=== PATIENT | female | born 2000 | race Caucasian/White ===

== ENCOUNTER 2021-11-18 11:42 | Outpatient (CLI) | payer OTHER, SELFPAY ==
[2021-11-18 12:13] LABS: Basophils Percent Auto 0.3 % (0.2-1.2); Eosinophils Absolute Auto 0.1 K/mm3 (0-0.3); Eosinophils Percent Auto 1.6 % (0-4.4); Hematocrit 34.3 % (37.0-47.0); Hemoglobin 10.6 g/dL (12.0-15.0); Immature Granulocyte Absolute 0.06 K/mm3 (0.00-0.031); Immature Granulocyte Percent A 0.7 % (0-0.5); Lymphocytes Absolute Auto 1.08 K/mm3 (0.9-3.2); Lymphocytes Percent Auto 12.5 % (18.3-44.2); Mean Corpuscular HGB Conc 30.9 g/dl (32-36); Mean Corpuscular Hemoglobin 26.6 pg (26-34); Monocytes Absolute Auto 0.8 K/mm3 (0.1-0.6); Neutrophils Absolute Auto 6.6 K/mm3 (1.3-6.7); Neutrophils Percent Auto 75.9 % (45.5-73.1); Platelet Count Result 242 k/mm3 (150-375); Red Blood Count 3.99 M/mm3 (4.2-5.4); Red Cell Distribution Width 13.8 % (11.5-14.5); White Blood Count 8.7 K/mm3 (4.5-10.0)
[2021-11-18 12:15] VITALS: BP 128/59; PULSE 94
[2021-11-18 12:15] LABS: Appearance Urine Slightly Cloudy (Clear); Bilirubin Urine Negative (Negative); Blood Urine Trace-lysed (Negative); Color Urine Yellow (Yellow); Glucose Urine UA Negative (Negative); Ketones Urine Negative (Negative); Leukocyte Esterase Ur 1+ LEU/UL (NEGATIVE); Nitrate Urine Negative (Negative); Protein Urine 2+ mg/dL (Negative); Specific Grav Ur >= 1.030 (1.001-1.035); Urobilinogen Urine 0.2 mg/dL (<2.0)
[2021-11-18 12:19] LABS: Creatinine Urine 171.5 mg/dL; Total Protein Urine Random 37 mg/dL; Ur Ttl Prot Creatinine Ratio 0.22 mg/mg (0-0.20)
[2021-11-18 12:20] LABS: Mucus Urine Rare /lpf; Squamous Epithelial Cell Urine Moderate /hpf (Few); WBC Urine 21-30 /hpf (0-3)
[2021-11-18 12:23] LABS: Alanine Aminotransferase 12 U/L (6-35); Albumin Level 3.4 g/dL (3.5-5.1); Alkaline Phosphatase 143 U/L (38-126); Anion Gap 5 mmol/L (8-16); Aspartate Amino Transferase 16 U/L (14-36); Bilirubin,Total 0.1 mg/dL (0.2-1.3); Blood Urea Nitrogen 6 mg/dL (7-17); Calcium 8.2 mg/dL (8.4-10.2); Carbon Dioxide 22 mmol/L (22-30); Chloride 109 mmol/L (98-107); Estimated Glomerular Filt Rate > 60; Glucose 94 mg/dL (65-110); Potassium 3.6 mmol/L (3.4-5.0); Sodium 136 mmol/L (137-145)
[2021-11-18 12:30] VITALS: BP 124/59; PULSE 87
[2021-11-18 12:41] LABS: Add Urine Microscopic? YES
[2021-11-18 12:45] VITALS: BP 127/69; PULSE 84
--- NOTE | 2021-11-18 13:00 | PC.NURSE ---
1250= SPoke with Dr. pete, labs Bps reveiwed. orders to discharge to home.
== END 2021-11-18 13:01 | disposition home or self-care (01) ==
LOC: ANHOBOP 11:46 → ANHOBPP 11:49
PROVIDERS: PCP Family Medicine; Visit Provider Obstetrics & Gynecology
DX: O13.9 Gestational [pregnancy-induced] hypertension without significant proteinuria, unspecified trimester (principal); Z3A.00 Weeks of gestation of pregnancy not specified
CPT/HCPCS: 36415; 59025; 80053; 81001; 82570; 84156; 84550; 85025; 87086; 99199

== ENCOUNTER 2021-11-20 13:34 | Outpatient (CLI) | payer OTHER, SELFPAY ==
[2021-11-20 13:41] VITALS: BP 143/68; BP 143/92; PULSE 106; PULSE 95
[2021-11-20 14:33] VITALS: PULSE 100; O2SAT 96
[2021-11-20 14:38] VITALS: PULSE 94; O2SAT 96
[2021-11-20 14:40] VITALS: BP 137/67; PULSE 89
--- NOTE | 2021-11-20 14:51 | PC.NURSE ---
1400--While taking pt's H&P, pt. states she is supposed to be taking baby aspirin, but has not taken it yet , she also states she has not been taking PNV and is taking Flintstones approx once or twice a week. Pt. denies h/a at this time, states she had a bad one this morning but states she did not take any Tylenol today. Pt. states she has been short of breath since last night and had chest pain that subsided with famotidine this morning. EFM X2 applied, v.s. taken and pulse ox applied at this time.
== END 2021-11-20 14:45 | disposition home or self-care (01) ==
LOC: ANHOBOP 14:34 → ANHOBPP 11-25 06:34
PROVIDERS: PCP Family Medicine; Visit Provider Obstetrics & Gynecology
DX: O13.9 Gestational [pregnancy-induced] hypertension without significant proteinuria, unspecified trimester (principal); Z3A.00 Weeks of gestation of pregnancy not specified
CPT/HCPCS: 59025; 99199

== ENCOUNTER 2021-11-21 16:15 | Outpatient (CLI) | payer OTHER, SELFPAY ==
[2021-11-21 16:54] LABS: Alanine Aminotransferase 12 U/L (6-35); Albumin Level 3.4 g/dL (3.5-5.1); Alkaline Phosphatase 130 U/L (38-126); Anion Gap 5 mmol/L (8-16); Aspartate Amino Transferase 21 U/L (14-36); Bilirubin,Total 0.2 mg/dL (0.2-1.3); Blood Urea Nitrogen 8 mg/dL (7-17); Calcium 8.8 mg/dL (8.4-10.2); Carbon Dioxide 21 mmol/L (22-30); Chloride 109 mmol/L (98-107); Estimated Glomerular Filt Rate > 60; Glucose 97 mg/dL (65-110); Potassium 4.2 mmol/L (3.4-5.0); Sodium 135 mmol/L (137-145); Uric Acid 4.6 mg/dL (2.5-7.5)
[2021-11-21 23:24] LABS: Total Volume 24 Hour Urine 1400 ml
[2021-11-21 23:32] LABS: Total Protein Urine 24 Hr 294 mg/24hr (28-141); Total Protein Urine Random 21 mg/dL
[2021-11-21 23:33] LABS: Creatinine 24 Hour Urine 1.8 gm/24 (0.8-1.8); Creatinine Urine 130.3 mg/dL
== END 2021-11-21 16:16 | disposition home or self-care (01) ==
LOC: ANHOBOP 16:23
PROVIDERS: PCP Family Medicine; Visit Provider Obstetrics & Gynecology
DX: Z39.2 Encounter for routine postpartum follow-up (principal)
CPT/HCPCS: 36415; 80053; 81050; 82570; 84156; 84550

== ENCOUNTER 2021-11-23 13:40 | Outpatient (RCR) | payer OTHER, SELFPAY ==
[2021-10-25 17:10] VITALS: BP 122/68; PULSE 98
[2021-11-02 13:13] VITALS: BP 129/89
[2021-11-09 12:15] VITALS: BP 116/56; PULSE 98
[2021-11-15 14:18] VITALS: BP 141/89
--- NOTE | ~2021-11-23 | US_ITS ---
EXAMINATION: US OB BPP wo non-stress DATE: 11/09/2021 12:22 CDT INDICATION: IUGR TECHNIQUE: Real-time transabdominal obstetric ultrasound. FINDINGS: Ultrasound dated 11/02/2021 There is a single living fetus in vertex presentation. The placenta is posterior without placenta pr evia. cardiac activity and movement is noted with a heart rate of 138 beats per minute. Biophysical profile: breathin of 2 movement: 2 of 2 tone: 2 of 2 Amniotic flud pocket: 2 of 2 Total score: 8 of 8 IMPRESSION: 1. Single living intrauterine in vertex presentation. 2: Total biophysical profile score of 8/8. Reviewed, dictated and finalized at location B.
--- NOTE | ~2021-11-23 | US_ITS ---
EXAMINATION: US OB follow up w BPP DATE: 11/15/2021 15:32 INDICATION: Intrauterine growth restriction. Third trimester. TECHNIQUE: Real-time ultrasound of the pelvis was performed. COMPARISON: Ultrasound 11/09/2021 FINDINGS: There is a single living fetus in vertex presentation. The placenta is posterior. heart rate i s 144 beats per minute (bpm). The amniotic fluid index is 11.1 cm, which is normal. The following biometric data were obtained: Biparietal diameter (BPD): 8.7 cm; head circumference (HC): 31.4 cm; abdominal circumference (AC): 32 .2 cm; femur length (FL): 7.0 cm. These measurements are concordant. Estimated weight is 2769 g +/- 415 g, which correlates with the 49th percentile when 12/14/21 is used as estimated date of delivery. As single measurements, these parameters are each equal to the following estimated gestational ages: BPD: 35 weeks 1 days. HC: 35 weeks 2 days. AC: 36 weeks 1 days. FL: 35 weeks 5 days. estimated gestational age based solely on measurements from this exam is 35 weeks 4 days +/- 2 weeks 3 days. Biophysical profile performed by the technologist: breathing (30 sec sustained breathing in 30 minutes): 2 out of 2 movement (3 gross body movements in 30 minutes): 2 out of 2 tone (one episode of ayiygls-miuswtjar-hiazuuh limb movement): 2 out of 2 Amniotic fluid pocket (2 cm): 2 out of 2 Total score: 8 out of 8 IMPRESSION: 1. Single living fetus in vertex presentation. 2. Estimated weight is 2769 g +/- 415 g, which correlates with the 49th percentile when 2 is used as estimated date of delivery. 3. Biophysical profile 8 out of 8. Reviewed, dictated and finalized at location B. IMPRESSION: 1. Single living fetus in vertex presentation. 2. Estimated weight is 2769 g +/- 415 g, which correlates with the 49th percentile when 12/14/21 is used as estimated date of delivery. 3. Biophysical profile 8 out of 8.
--- NOTE | ~2021-11-23 | US_ITS ---
EXAMINATION: US OB follow up w BPP DATE: 10/25/2021 17:08 INDICATION: IUGR. Biophysical profile. Evaluate growth. TECHNIQUE: Real-time ultrasound of the pelvis was performed. The interpreting radiologist was not pre sent for the study. COMPARISON: None. FINDINGS: There is a single living fetus in vertex presentation. The placenta is posterior. cardiac acti vity and movement are noted. heart rate is 136 beats per minute (bpm). The amniotic fluid index is 11.1 cm, which is normal. The following biometric data were obtained: BPD: 81 cm corresponds to gestational age 32 weeks 3 day(s). Head circumference: 302 cm corresponds to gestational age 33 weeks 4 day(s). Abdominal circumference: 290 cm corresponds to gestational age 33 weeks 0 day(s). Femur length: 64 cm corresponds to gestational age 32 weeks 6 day(s). Head circumference to abdominal circumference ratio: 1.04 Estimated weight: 2083 g plus or minus 312 g, 42.9% by Hadlock method. Biophysical profile performed by the technologist: breathing (30 sec sustained breathing in 30 minutes): 2 out of 2 movement (3 gross body movements in 30 minutes: 2 out of 2 tone (one episode of yfftffn-uuepagpwf-osvicrk limb movement): 2 out of 2 Amniotic fluid pocket (2 cm): 2 out of 2 Total score: 8 out of 8 IMPRESSION: 1. Single living fetus in vertex presentation with heart rate of 136 bpm. 2. Normal posterior placenta. 3. Biophysical profile 8 out of 8. 4. Gestational age by ultrasound of 33 weeks 0 day(s) with ultrasound estimated date of delivery (BEN ) of 12/13/2021. Reviewed, dictated and finalized at location A. IMPRESSION: 1. Single living fetus in vertex presentation with heart rate of 136 bpm. 2. Normal posterior placenta. 3. Biophysical profile 8 out of 8. 4. Gestational age by ultrasound of 33 weeks 0 day(s) with ultrasound estimated date of delivery (BEN) of 12/13/2021.
--- NOTE | ~2021-11-23 | US_ITS ---
EXAMINATION: US OB BPP wo non-stress DATE: 11/23/2021 14:50 INDICATION: IUGR during third trimester TECHNIQUE: Real-time pelvic ultrasound was performed. The interpreting radiologist was not present fo r the study. COMPARISON: 11/15/2021 FINDINGS: There is a single living fetus in vertex presentation. The placenta is fundal. heart rate is 13 5 beats per minute (bpm). The amniotic fluid index is 7.5 cm which is normal Biophysical profile performed by the technologist: breathing (30 sec sustained breathing in 30 minutes): 2 out of 2 movement (3 gross body movements in 30 minutes): 2 out of 2 tone (one episode of dufowkf-tmproxzka-keaqcmf limb movement): 2 out of 2 Amniotic fluid pocket (2 cm): 2 out of 2 Total score: 8 out of 8 IMPRESSION: 1. Single living fetus in vertex presentation. 2. Biophysical profile 8 out of 8. 3. Normal amniotic fluid index. Reviewed, dictated and finalized at location A.
--- NOTE | ~2021-11-23 | US_ITS ---
EXAMINATION: US OB BPP wo non-stress DATE: 11/02/2021 14:10 CDT INDICATION: IUGR TECHNIQUE: Real-time transabdominal obstetric ultrasound. FINDINGS: No prior studies for comparison. There is a single living fetus in vertex presentation. The placenta is posterior without placenta pr evia. NOMAN is normal measuring 15.1 cm. cardiac activity and movement is noted with a heart rate of 132 beats per minute. Biophysical profile: breathin of 2 movement: 2 of 2 tone: 2 of 2 Amniotic flud pocket: 2 of 2 Total score: 8 of 8 IMPRESSION: 1. Single living intrauterine in vertex presentation. 2: Total biophysical profile score of 8/8. Reviewed, dictated and finalized at location A.
[2021-11-23 14:59] VITALS: BP 148/78; PULSE 108
== END 2021-12-11 09:20 | disposition home or self-care (01) ==
LOC: ANHOBOP 13:40
PROVIDERS: PCP Family Medicine; Visit Provider Obstetrics & Gynecology
DX: O36.5930 Maternal care for other known or suspected poor fetal growth, third trimester, not applicable or unspecified (principal); Z3A.32 32 weeks gestation of pregnancy
CPT/HCPCS: 59025; 76816; 76819

== ENCOUNTER 2021-11-25 12:35 | Inpatient (IN) | payer OTHER, SELFPAY ==
[2021-11-25] VITALS (41 sets, daily range): BP systolic 95–156; BP diastolic 66–97; PULSE 64–124; TEMP 36.2–36.8; O2SAT 89–100; BMI 45.6
--- OUTSIDE RECORDS SUMMARY | 2021-11-25 12:41 | XMS_ITS | CCD ---
:2000 Author Care Team Providers Name Role Phone Júnior Gibbs Attending Physician Unavailable Vital Signs Unknown or Not Available. Allergies Allergy Code Allergy Type Reaction Status No Known Environmental 0 No known environmental Active Allergies allergies No Known Food Allergies 0 No known food allergies Active No Known Drug Allergies 0 No known drug allergies Active Procedures Unknown or Not Available. History of Immunizations Immunization Code Date Hep B, adolescent or pediatric 2 IPV 10 2001 DTaP 20 2001 IPV 10 2001 Hib, unspecified formulation 17 2001 DTaP 20 2001 Hep B, adolescent or pediatric 2 Hib, unspecified formulation 2001 DTaP 20 2001 MMR 03 08/03/2002 varicella 21 08/03/2002 varicella 21 01/13/2007 HPV, quadrivalent 62 05/16/2012 meningococcal MCV4P 114 05/16/2012 Tdap 115 05/16/2012 Influenza, seasonal, injectable, preservative free 140 05/16/2012 HPV, quadrivalent 62 12/11/2013 meningococcal MCV4P 114 12/29/2015 COVID-19, mRNA, LNP-S, PF, 100 mcg/0.5mL dose or 50 mcg/0.25 mL dose 12/24/2020 COVID-19, mRNA, LNP-S, PF, 100 mcg/0.5mL dose or 50 mcg/0.25 mL dose 01/26/2021 Problems Unknown or Not Available. Results Unknown or Not Available. Active Medications Unknown or Not Available. Medications Administered During Visit Unknown or Not Available. Encounters Encounter Diagnosis Diagnosis Code Start Date Exposure to SARS-CoV-2 [id number]
--- OUTSIDE RECORDS SUMMARY | 2021-11-25 12:41 | XMS_ITS | CCD ---
:2001 Author Care Team Providers Name Role Phone GUSTAVO PARHAM Attending Physician Unavailable Vital Signs Unknown or [...] 2001 IPV 10 2001 Hib, unspecified formulation 2001 DTaP 20 2001 Hep B, adolescent [...] 01/26/2021 Problems Unknown or Not Available. Results GLUCOSE TOLERANCE OB 3HR - Collect Date/ Time: 09/27/2021 10:06 Test Name Code Test Result Test Units Test Ref Range IS PATIENT FASTING? YES N/A Acti
--- OUTSIDE RECORDS SUMMARY | 2021-11-25 12:41 | XMS_ITS | CCD ---
:2001 Author Care Team Providers Name Role Phone EUNICEJOLIELEONIDES Attending Physician Unavailable Vital Signs Unknown or Not Available. Allergies Allergy Code Allergy Type Reaction Status No Known Environmental 0 No known environmental Active Allergies allergies No Known Food Allergies 0 No known food allergies Active No Known Drug Allergies 0 No known drug allergies Active Procedures Procedure Code Procedure Type Date CULTURE URINE [id number] SNOMED CT 08/20/2021 History of Immunizations Immunization Code Date Hep B, adolescent or pediatric 08 2 IPV 10 2001 DTaP 20 2001 IPV 10 2001 Hib, unspecified formulation 17 2001 DTaP 20 2001 Hep B, adolescent or pediatric 08 2 Hib, unspecified formulation 17 2001 DTaP 20 2001 MMR 03 08/03/2002 [...] 01/26/2021 Problems Unknown or Not Available. Results COMPREHENSIVE METABOLIC PANEL - Collect Date/Time: 08/20/2021 15:06 Test Name
--- OUTSIDE RECORDS SUMMARY | 2021-11-25 12:41 | XMS_ITS | CCD ---
:2001 Author Care Team Providers Name Role Phone NABEEL KERR Attending Physician Unavailable Vital Signs Unknown or Not Available. Allergies Allergy Code Allergy Type Reaction Status No Known Environmental 0 No known environmental Active Allergies allergies No Known Food Allergies 0 No known food allergies Active No Known Drug Allergies 0 No known drug allergies Active Procedures Procedure Code Procedure Type Date CULTURE URINE [id number] SNOMED CT 05/17/2021 History of Immunizations Immunization Code Date Hep [...] Problems Unknown or Not Available. Results GLUCOSE 1 HR P P - Collect Date/Time: 11:30 Test Name Code
--- OUTSIDE RECORDS SUMMARY | 2021-11-25 12:41 | XMS_ITS | CCD ---
[...] Encounters Encounter Diagnosis Diagnosis Code Start Date Blood glucose abnormal [id number]
--- OUTSIDE RECORDS SUMMARY | 2021-11-25 12:41 | XMS_ITS | CCD ---
[...] 01/26/2021 Problems Unknown or Not Available. Results BETA HCG QUANT PREG - Collect Date/Time: 04/07/2021 10:14 Test Name Code Test Result Test Units Test Ref Range HCG QUANT 182 mIU/mL Active Medicati
--- OUTSIDE RECORDS SUMMARY | 2021-11-25 12:41 | XMS_ITS | CCD ---
:2001 Author Care Team Providers Name Role Phone MAGGIE HEARN Attending Physician Unavailable MAGGIE HEARN Rounding (Secondary) Physician Unavailab le Vital Signs Unknown or Not Available. Allergies [...] IPV 10 2001 DTaP 20 2001 IPV 2001 Hib, unspecified formulation 17 2001 DTaP [...] Results Unknown or Not Available. Active Medications No Active Medications Medications Administered During Visit Unknown or Not Available. Encounters Unknown or Not Available. Social History Smoking Status Code Start Date
--- OUTSIDE RECORDS SUMMARY | 2021-11-25 12:41 | XMS_ITS | CCD ---
[...] Active Procedures Procedure Code Procedure Type Date CBC W DIFF [id number] SNOMED CT 09/21/2021 History of Immunizations Immunization Code Date Hep [...] 1 HR P P - Collect Date/Time: 14:45 Test Name Code
--- OUTSIDE RECORDS SUMMARY | 2021-11-25 12:41 | XMS_ITS | CCD ---
[...] Encounters Encounter Diagnosis Diagnosis Code Start Date Routine care [id number]
--- OUTSIDE RECORDS SUMMARY | 2021-11-25 12:41 | XMS_ITS | CCD ---
[...] or pediatric 2 IPV 10 2001 DTaP 2001 IPV 10 2001 Hib, unspecified formulation [...] Diagnosis Code Start Date Exposure to SARS-CoV-2 [id number] 01/14/2021 Social History
--- OUTSIDE RECORDS SUMMARY | 2021-11-25 12:41 | XMS_ITS | CCD ---
[...] TOLERANCE OB 3HR - Collect Date/ Time: 05/24/2021 10:39 Test Name Code Test Result Test Units Test Ref Range IS PATIENT FASTING? YES N/A Act
--- OUTSIDE RECORDS SUMMARY | 2021-11-25 12:42 | XMS_ITS ---
:2001 Author Care Team Providers Name Role Phone Lian Magaña Primary Care Provider Unavailable Allergies Code Code System Name Reaction Severity Status Onset Ceclor ? ? Active ? 03949 RxNorm Duloxetine Rash ? Active ? Extendryl ? ? Active ? 7984 RxNorm Penicillin v ? ? Active ? Medications Name Status Start Date Stop Date ? ? albuterol sulfate HFA 90 mcg/actuation aerosol inhaler Completed ? 08/06/2018 INHALE TWO PUFFS BY MOUTH EVERY 4 HOURS prn atomoxetine 25 mg capsule Unknown ? Not av ailable Take 1 capsule every day by oral route for 30 days. azithromycin 250 mg tablet Completed ? 05/20 TAKE 2 TABLETS BY MOUTH ON DAY 1 AND EN TAKE 1 TABLET BY MOUTH ONCE A DAY ON DAY 2 THROUGH DAY 5 bupropion HCl XL 150 mg 24 hr tablet, extended release Completed ? 03/31/2020 TAKE 1 TABLET BY MOUTH ONCE DAILY bupropion HCl XL 300 mg 24 hr tablet, extended release Completed ? 06/30/2020 TAKE 1 TABLET BY MOUTH ONCE DAILY celecoxib 200 mg capsule Active ? Not beluah ilable TAKE 1 CAPSULE BY MOUTH ONCE DAILY ciprofloxacin 500 mg tablet Completed ? 02/03 TAKE 1 TABLET BY MOUTH TWICE DAILY cyclobenzaprine 10 mg tablet Active ? Not available TAKE 1 TABLET BY MOUTH THREE TIMES DAILY NEEDED cyclobenzaprine 5 mg tablet Unknown ? Not available Take 1 tablet as needed by oral route at bedtime for 30 days. Depo-Provera 150 mg/mL intramuscular suspension Completed ? 05/18/2017 Inject 1 mL every 3 months by intramuscular route. diclofenac sodium 25 mg tablet,delayed release Completed ? 02/18/2019
--- OUTSIDE RECORDS SUMMARY | 2021-11-25 12:42 | XMS_ITS ---
:2001 Author Care Team Providers Name Role Phone LEONIDES DAWSON MD Primary Care Provider [phone] Allergies Code Code System Name Reaction Severity Status Onset Ceclor ? ? Active ? 29844 RxNorm Duloxetine Rash ? Active ? Extendryl ? ? Active ? 7984 RxNorm Penicillin v ? ? Active ? Notes: Some allergies listed in Docume nts: #[id number], #[id number], #[id number], #[id number] could not be added to this patient's shannan rt. Please review these documents and add these allergies to the patient's chart m anually as needed. Medications Name Status Start Date Stop Date ? ? Adult Low Dose Aspirin 81 mg tablet,delayed release Active ? Not available Take 1 tablet every day by oral route. albuterol sulfate HFA 90 mcg/actuation aerosol inhaler Completed ? 08/06/2018 INHALE TWO PUFFS BY MOUTH EVERY 4 HOURS prn atomoxetine 25 mg capsule Completed ? 2018 TAKE 1 CAPSULE BY MOUTH ONCE DAILY FOR 30 DAYS azithromycin 250 mg tablet Active ? Not a vailable TAKE 2 TABLETS BY MOUTH ON DAY 1 AND TH EN TAKE 1 TABLET BY MOUTH ONCE A DAY ON DAY 2 THROUGH DAY 5 bupropion HCl XL 150 mg 24 hr tablet, extended release Active ? Not available TAKE 1 TABLET BY MOUTH ONCE DAILY bupropion HCl XL 300 mg 24 hr tablet, extended release Active ? Not available TAKE 1 TABLET BY MOUTH ONCE DAILY celecoxib 200 mg capsule Completed ? 021 TAKE 1 CAPSULE BY MOUTH ONCE DAILY ciprofloxacin 500 mg tablet Completed ? 02/03 TAKE 1 TABLET BY MOUTH TWICE DAILY cyclobenzaprine 10 mg tablet Completed ? TAKE 1 TABLET BY MOUTH THREE TIMES DAILY NEEDED
--- OUTSIDE RECORDS SUMMARY | 2021-11-25 12:42 | XMS_ITS | Encounter Summary ---
:2001 Author Care Team Providers Name Role Phone Lian Magaña MD Primary Care Provider [phone] Reason for Visit Not seen by provider - Nurse visit only TDAP Assessment and Plan None recorded.Discussion Note: None recorded.Patient educational handouts: No information available. Plan of Care Reminders Provider Appointments None recorded. ? ? Lab None recorded. ? ? Referral None recorded. ? ? Procedures None recorded. ? ? Surgeries None recorded. ? ? Imaging None recorded. ? ? Medications Name Start Date ? ? Adult Low Dose Aspirin 81 mg tablet,delayed release ? Take 1 tablet every day by oral route. famotidine ? Notes: vitamin d/ PNV Medications Administered None recorded. Vitals Height 5 ft 1 in Results Lab Results None recorded. Allergies Code Code System Name Reaction Severity Onset Ceclor ? ? ? 73478 RxNorm Duloxetine Rash ? ? Extendryl ? ? ? 7984 RxNorm Penicillin v ? ? ? Notes: Some allergies listed in Docume nts: #[id number], #[id number], #[id number], #[id number] could not be added to this patient's shannan rt. Please review these documents and add these allergies to the patient's chart m anually as needed. Problems Name Status Onset Date Source ? Thyroid Nodule Active 09/25/2016 ? Vitamin D Deficiency Active 09/25/2016 ? Iron Deficiency Active 11/13/2019 ? Foot Pain Active 08/16/2020 ? Congenital Pes Planus Active
[2021-11-25 13:30] LABS: Basophils Percent Auto 0.3 % (0.2-1.2); Eosinophils Absolute Auto 0.1 K/mm3 (0-0.3); Eosinophils Percent Auto 1.1 % (0-4.4); Hematocrit 33.2 % (37.0-47.0); Hemoglobin 10.5 g/dL (12.0-15.0); Immature Granulocyte Absolute 0.07 K/mm3 (0.00-0.031); Immature Granulocyte Percent A 0.7 % (0-0.5); Lymphocytes Percent Auto 11.3 % (18.3-44.2); Mean Corpuscular HGB Conc 31.6 g/dl (32-36); Mean Corpuscular Hemoglobin 26.4 pg (26-34); Mean Corpuscular Volume 83.4 fl (80-100); Mean Platelet Volume 10.4 fl (7.4-10.4); Monocytes Absolute Auto 0.8 K/mm3 (0.1-0.6); Monocytes Percent Auto 7.8 % (2.6-8.5); Neutrophils Absolute Auto 7.6 K/mm3 (1.3-6.7); Neutrophils Percent Auto 78.8 % (45.5-73.1); Platelet Count Result 256 k/mm3 (150-375); Red Blood Count 3.98 M/mm3 (4.2-5.4); Red Cell Distribution Width 14.2 % (11.5-14.5); White Blood Count 9.7 K/mm3 (4.5-10.0)
[2021-11-25] MEDS: DINOPROSTONE 10 MG VAG INSERT VAGINAL (13:30)
--- NOTE | 2021-11-25 13:38 | LDADM ---
This patient, Cindy Madsen, was admitted to Labor/Delivery/Recovery 105 on 11/25/21 at 12:35. Plans for labor, pain management and were discussed with patient. Patient/family oriented to hospital policies and general routines including ID bracelet, bed and alarms, visiting hours, pain management, procedures, bathroom and other care routines, personal items, smoking policy, room service/diet and guest tray routines, infant security routines, and visiting hours. Patient/Family are encouraged to report perceived risks to care and to ask questions if they do not understand what they are told or what they should do. See OBIX for further documentation.
[2021-11-25 13:44] LABS: Alanine Aminotransferase 16 U/L (6-35); Albumin Level 3.2 g/dL (3.5-5.1); Alkaline Phosphatase 147 U/L (38-126); Anion Gap 8 mmol/L (8-16); Aspartate Amino Transferase 18 U/L (14-36); Bilirubin,Total 0.2 mg/dL (0.2-1.3); Blood Urea Nitrogen 5 mg/dL (7-17); Calcium 8.3 mg/dL (8.4-10.2); Carbon Dioxide 18 mmol/L (22-30); Chloride 110 mmol/L (98-107); Estimated Glomerular Filt Rate > 60; Glucose 120 mg/dL (65-110); Potassium 3.4 mmol/L (3.4-5.0); Sodium 136 mmol/L (137-145); Uric Acid 5.6 mg/dL (2.5-7.5)
[2021-11-25] MEDS: ACETAMINOPHEN 500 MG TABLET 1000 MG (19:00)
--- NOTE | 2021-11-25 19:47 | WPDANESEPP ---
Anes - Eval Pre Procedure Procedure: labor epidural Date/Time: 11/25/21 19:47 Surgeon: juan r Pre Op Diagnosis: IOL Patient Data Age: 21 Gender: F Height: 1.55 m Weight: 109.5 kg Last Vital Signs Temp 36.2 C L 11/25/21 13:24 Pulse 108 H 11/25/21 18:52 BP 134/97 H 11/25/21 18:52 Pulse Ox 100 11/25/21 19:43 O2 Del Method Room Air 11/25/21 13:33 Allergies Allergy/AdvReac Type Severity Reaction Status Date / Time chlorpheniramine Allergy Mild Hives Verified 11/15/21 13:32 [From Extendryl] dexchlorpheniramine Allergy Mild Hives Verified 11/15/21 13:32 [From Extendryl] penicillin V Allergy Mild Hives Verified 11/15/21 13:32 phenylephrine Allergy Mild Hives Verified 11/15/21 13:32 [From Extendryl] scopolamine [From Extendryl] Allergy Mild Hives Verified 11/15/21 13:32 cefaclor [From Ceclor] Allergy Hives Verified 11/25/21 13:54 Home Medications Medication Instructions Recorded Confirmed Type famotidine 10 mg tablet (Acid 10 mg PO DAILY #90 tabs 07/02/21 11/25/21 Rx Hydro Pneumatic Tester (famotidine)) Laboratory Tests 11/25/21 11/25/21 11/25/21 13:12 13:12 13:12 WBC 9.7 K/mm3 K/mm3 (4.5-10.0) RBC 3.98 M/mm3 L M/mm3 (4.2-5.4) Hgb 10.5 g/dL L g/dL (12.0-15.0) Hct 33.2 % L % (37.0-47.0) MCV 83.4 fl fl (80-100) MCH 26.4 pg pg (26-34) MCHC 31.6 g/dl L g/dl (32-36) RDW 14.2 % % (11.5-14.5) Plt Count 256 k/mm3 k/mm3 (150-375) MPV 10.4 fl fl (7.4-10.4) Immature Gran % (Auto) 0.7 % H % (0-0.5) Neut % (Auto) 78.8 % H % (45.5-73.1) Lymph % (Auto) 11.3 % L % (18.3-44.2) [place] % (Auto) 7.8 % % (2.6-8.5) Eos % (Auto) 1.1 % % (0-4.4) Baso % (Auto) 0.3 % % (0.2-1.2) Lymph # (Auto) 1.10 K/mm3 K/mm3 (0.9-3.2) [place] # (Auto) 0.8 K/mm3 H K/mm3 (0.1-0.6) Eos # (Auto) 0.1 K/mm3 K/mm3 (0-0.3) Baso # (Auto) 0.0 K/mm3 K/mm3 (0.0-0.1) Abs Immat Gran (auto) 0.07 K/mm3 H K/mm3 (0.00-0.031) Absolute Neuts (auto) 7.6 K/mm3 H K/mm3 (1.3-6.7) Absolute Nucleated RBC 0.0 K/mm3 K/mm3 (0.0-0.012) Nucleated RBC % 0.0 % % (0.0-0.2) Sodium Potassium Chloride Carbon Dioxide Anion Gap BUN Creatinine Estim Creat Clear Calc Estimated GFR Glucose Uric Acid Cancelled Calcium Total Bilirubin AST ALT Alkaline Phosphatase Total Protein Albumin RPR Pending Blood Type Antibody Screen 11/25/21 11/25/21 13:12 13:12 WBC RBC Hgb Hct MCV MCH MCHC RDW Plt Count MPV Immature Gran % (Auto) Neut % (Auto) Lymph % (Auto) [place] % (Auto) Eos % (Auto) Baso % (Auto) Lymph # (Auto) [place] # (Auto) Eos # (Auto) Baso # (Auto) Abs Immat Gran (auto) Absolute Neuts (auto) Absolute Nucleated RBC Nucleated RBC % Sodium 136 mmol/L L mmol/L (137-145) Potassium 3.4 mmol/L mmol/L (3.4-5.0) Chloride 110 mmol/L H mmol/L (98-107) Carbon Dioxide 18 mmol/L L mmol/L (22-30) Anion Gap 8 mmol/L mmol/L (8-16) BUN 5 mg/dL L mg/dL (7-17) Creatinine 0.40 mg/dL L mg/dL (0.7-1.0) Estim Creat Clear Calc Not Reportable Estimated GFR > 60 (59 - ) Glucose 120 mg/dL H mg/dL (65-110) Uric Acid 5.6 mg/dL mg/dL (2.5-7.5) Calcium 8.3 mg/dL L mg/dL (8.4-10.2) Total Bilirubin 0.2 mg/dL mg/dL (0.2-1.3) AST
[2021-11-26] VITALS (206 sets, daily range): BP systolic 77–178; BP diastolic 28–131; PULSE 86–175; RESP 16–20; TEMP 36.3–36.9; O2SAT 90–100
[2021-11-26] MEDS: LACTATED RINGERS 1,000 ML 125 ML IV CONT ×2 (02:40→04:14)
[2021-11-26] MEDS: PHENYLEPHRINE 1,000 MCG/10 ML SYRINGE 100 MCG IV PUSH (03:43)
[2021-11-26] MEDS: LABETALOL HCL INJ 100 MG/20 ML VIAL 20 MG IV PUSH (04:55)
[2021-11-26] MEDS: MAGNESIUM SULF 4 GM/WATER100ML 4 GM/100 ML BAG IVPB (04:58)
[2021-11-26] MEDS: MAGNESIUM SULF 20GM/WATER500ML 500 ML 50 MG IV CONT ×2 (05:20→15:55)
[2021-11-26] MEDS: OXYTOCIN 30 UNITS/NS 500 ML 30 UNITS/500 ML BAG 6 UNITS IV CONT (05:31)
--- NOTE | 2021-11-26 07:01 | PM.IMHP ---
H&P: HPI History of Present Illness Date/Time: 11/26/21 07:01 Chief Complaint: elevated blood pressure Narrative: Cindy is a 21yo @ 37.3 who was admitted from clinic on 11/25/21 for elevated blood pressures. She has been monitored this entire for blood pressure-- chronic HTN vs gestational hypertension. But over this week, her BPs have persistently been 140-150's over high 90's. She reports intermittent headaches and chest pains that come and go. She reports good movement. She is s/p cervidil overnight and already received an epidural. She began spiking severe range BPs and subsequently required labetalol IV and magnesium has since be started; giving her a diagnosis of PEC w/ SF. She denies any CP, SOB, vision changes, TUCKER, or RUQ pain. Her is complicated by: - Elevated 1 hr glucose; 3 hour normal - Varicella, CMV, parvo non-immune - GHTN ---> PEC w/ SF - Inadequate weight gain during (2lbs entire ) - Obesity Review of Systems Review of Systems: All systems reviewed & are unremarkable except as noted in HPI and below (HPI) [facility] Past Medical History Medical History Dysmenorrhea Surgical History Surgical History History of orthopedic surgery Family History Family History Grandparent Breast cancer Pancreatic cancer Father Hypertension Mother Hypertension Mother Mitral valve prolapse Social History Social History Smoking status: Never smoker Second hand tobacco smoke exposure: No Substance use: never Spiritual care concerns: No Meds Home Medications and Allergies Home Medications Medication Instructions Recorded Confirmed Type famotidine 10 mg tablet (Acid 10 mg PO DAILY #90 tabs 07/02/21 11/25/21 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)) Allergies Allergy/AdvReac Type Severity Reaction Status Date / Time chlorpheniramine Allergy Mild Hives Verified 11/15/21 13:32 [From Extendryl] dexchlorpheniramine Allergy Mild Hives Verified 11/15/21 13:32 [From Extendryl] penicillin V Allergy Mild Hives Verified 11/15/21 13:32 phenylephrine Allergy Mild Hives Verified 11/15/21 13:32 [From Extendryl] scopolamine [From Extendryl] Allergy Mild Hives Verified 11/15/21 13:32 cefaclor [From Ceclor] Allergy Hives Verified 11/25/21 13:54 Vital Signs Vital Signs - 24 hr 11/25/21 13:25 11/25/21 13:24 11/25/21 13:31 Temperature 97.2 F L Pulse Rate 108 H 102 H Respiratory Rate Blood Pressure 145/91 H 150/83 H Pulse Oximetry Oxygen Delivery 11/25/21 13:46 11/25/21 14:01 11/25/21 14:16 Temperature Pulse Rate 97 95 96 Respiratory Rate Blood Pressure 154/86 H 156/79 H 150/86 H Pulse Oximetry Oxygen Delivery 11/25/21 14:31 11/25/21 15:02 11/25/21 15:23 Temperature Pulse Rate 90 88 91 Respiratory Rate Blood Pressure 125/66 95/79 L 129/68 Pulse Oximetry Oxygen Delivery 11/25/21 15:31 11/25/21 16:32 11/25/21 18:25 Temperature Pulse Rate 85 101 H Respiratory Rate Blood Pressure 150/78 H 150/83 H Pulse Oximetry 100 Oxygen Delivery 11/25/21 18:27 11/25/21 18:30 11/25/21 18:35 Temperature Pulse Rate 110 H Respiratory Rate Blood Pressure 154/89 H Pulse Oximetry 99 100 Oxygen Delivery 11/25/21 18:40 11/25/21 18:45 11/25/21 18:50 Temperature Pulse Rate Respiratory Rate Blood Pressure Pulse Oximetry 100 100 99 Oxygen Delivery 11/25/21 18:52 11/25/21 18:55 11/25/21 19:00 Temperature Pulse Rate 108 H Respiratory Rate Blood Pressure 134/97 H Pulse Oximetry 98 99 Oxygen Delivery 11/25/21 19:02 11/25/21 19:38 11/25/21 19:43 Temperature Pulse Rate Respiratory Rate Blood Pressure Pulse
[2021-11-26 07:12] LABS: Rapid Plasma Reagin Non-Reactive (NonReactive)
--- NOTE | 2021-11-26 07:19 | WPDHPUPDATE1 ---
History and Physical Update Update Date/Time: 11/26/21 07:19 History and Physical has been reviewed, including an updated exam of the patient. There are NO changes in the patient's condition. Risks, benefits, and alternatives have been discussed and questions answered. Patient agrees to proceed with procedure.
--- NOTE | 2021-11-26 07:35 | PM.OBPNLAB ---
Pain Control Date/time seen: 11/26/21 07:35 Pain control: epidural Pelvic Exam Dilation (cm): 3 Effacement (%): 80 station: -3 Amniotic membrane status: Ruptured (clear 0730) Comments: bloody show noted Contractions Monitor mode: Internal (placed this exam) Contraction frequency: 2 Status status: Category l Assessment and Plan Pitocin rate (mU/min): 6 Assessment: induction ongoing Plan: continuous present management
[2021-11-26] MEDS: ONDANSETRON INJ 4 MG/2 ML VIAL IV PUSH (09:05)
[2021-11-26] MEDS: LACTATED RINGERS 1,000 ML 75 ML IV CONT (11:49)
[2021-11-26] MEDS: LIDOCAINE HCL 1% LOCAL INJ 10 ML VIAL (12:36)
--- NOTE | 2021-11-26 12:57 | P.PCNOB_ITS ---
OB - Delivery Note Procedure Delivery date: 11/26/21 Events: Preeclampsia w severe features Induction method: Per Cervidil Protocol Delivery augmentation: Rupture of Membranes and Pitocin Delivery monitor: External FHT and Internal Uterine Route of delivery: Laceration Description: Perineal - 1st Degree Delivery repair: vicryl Specimen: Yes Quantitative Blood Loss (ml): 600 Anesthesia type: Epidural (and local) Disposition: Floor Baby Date of : 11/26/21 Time of : 12:29 Weeks of gestation at delivery: 37 (.3) Infant gender: Female Weight (pounds): 5 Weight (ounces): 9 presentation: vertex position: Left Occiput Anterior Placenta delivery description: Expressed Cord Vessel Description: 3 Vessels and Clamped/Cut score one minute: 8 score five minutes: 9 Narrative: Mika rapidly progressed to complete dilation with strong desire to push. S he pushed for approximately 15 minutes with good maternal effort. She delivered the head over intact perineum. She easily delivered the 's shoulders and body without complication. A short cord was noted and the infant was kept at the perineum where her mouth was bulb suctioned and she was stimulated until cry was heard. Delayed cord clamping was performed. The umbilical cord was then clamped and cut. The infant was then immediately placed skin to skin with good cry. A segment of the cord was collected for cord gases. With Pitocin running and gentle downward traction on the cord, the placenta delivered without complications. Brisk bleeding was then noted. A hymenal tear was noted with brisk bleeding, however, her epidural was not working well. She was then anesthetized with lidocaine. Once the local anesthesia took effect, I repaired the laceration in the normal fashion using 2-0 Vicryl. Good hemostasis was noted. Sponge, lap, instrument, and needle counts were correct at the end the procedure. Mom and baby were left bonding in the birthing suite in stable condition. [facility] Delivery Billing Delivery Delivery: Delivery Charge
[2021-11-26] MEDS: OXYTOCIN 30 UNITS/NS 500 ML 30 UNITS/500 ML BAG 125 UNITS IV CONT (13:02)
[2021-11-26] MEDS: ACETAMINOPHEN 325 MG TABLET 650 MG PO (15:20)
[2021-11-26] MEDS: WITCH HAZEL 40 PADS 1 PAD TOPICAL (15:21)
[2021-11-26] MEDS: BENZOCAINE 20% AER SPR (*SP) 56 GM CAN 1 SPRAY TOPICAL (15:21)
[2021-11-27 00:30] VITALS: BP 140/83; PULSE 110; RESP 18; TEMP 37.2; O2SAT 99
[2021-11-27] MEDS: HYDROcodone/acetaminophen (*CRX) 5-325 MG TABLET 1 TAB PO (00:52)
[2021-11-27] MEDS: LACTATED RINGERS 1,000 ML 75 ML IV CONT (02:08)
[2021-11-27] MEDS: MAGNESIUM SULF 20GM/WATER500ML 500 ML 50 MG IV CONT (02:09)
[2021-11-27 04:20] VITALS: BP 140/76; PULSE 115; RESP 18; TEMP 37.2; O2SAT 98
[2021-11-27] MEDS: IBUPROFEN 600 MG TABLET PO ×2 (05:28→18:34)
[2021-11-27 05:45] LABS: Hematocrit 26.2 % (37.0-47.0); Hemoglobin 8.1 g/dL (12.0-15.0)
[2021-11-27 08:00] VITALS: BP 135/91; PULSE 103; RESP 16; TEMP 36.8; O2SAT 98
--- NOTE | 2021-11-27 08:23 | WPDANLDPN2 ---
Anes-Prog Note L&D Date/Time: 11/27/21 08:23 Comfortable throughout: labor and delivery Neuraxial method: epidural Epidural/Spinal procedure site: tender Neuro status: Neuro function grossly intact. Cardiovascular status: normal Respiratory status: normal Airway patency: baseline Mental status: baseline Post-Op hydration status: normal Vital Signs: Last Vital Signs Temp 98.9 F 11/27/21 04:20 Pulse 115 H 11/27/21 04:20 Resp 18 11/27/21 04:20 BP 140/76 11/27/21 04:20 Pulse Ox 98 11/27/21 04:20 O2 Del Method Room Air 11/26/21 19:50 Pain score (VAS): 0 I/O: Intake & Output 11/26/21 11/27/21 11/27/21 23:59 07:59 15:59 Intake Total 500 1700 Output Total 1600 600 Balance -1100 1100 Patient feedback: Patient satisfied with anesthetic care.
[2021-11-27] MEDS: DOCUSATE SODIUM 100 MG CAPSULE PO (08:24)
[2021-11-27] MEDS: FAMOTIDINE 10 MG TABLET PO (08:24)
--- NOTE | 2021-11-27 10:11 | P.PNOB_ITS ---
OB - PN: Subj Subjective Date/time seen: 11/27/21 10:11 Narrative: PPD#1 She reports doing well today. 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 Her pain is controlled. She is tolerating regular diet, voiding, passing gas, and ambulating without issues. She is breast and bottle feeding. OB - PN: Obj Data Labs CBC & Chem 7: 11/27/21 04:40 11/25/21 13:12 Labs: Laboratory Results - last 24 hr 11/27/21 04:40 Hgb 8.1 L Hct 26.2 L OB - PN A/P Assessment and Plan (1) Pre-eclampsia: Code(s): O14.90 - Unspecified pre-eclampsia, unspecified trimester Status: Acute (2) Normal vaginal delivery: Code(s): O80 - Encounter for full-term uncomplicated delivery Status: Acute Plan day: 1 Plan: routine care Comments: - D/c magnesium at 24 hours - Repeat labs pending for later today; H/H w/ expected drop though - Iron BID Time Spent With Patient Time: Total time spent is greater than 50% in coordination of care (as documented) at patient's floor/unit and/or counseling patient: Review of Systems Constitutional: Constitutional: Denies chills, Denies fever(s) and Denies headache(s) Eyes: Eyes: Denies change in vision ENT: Denies dizziness and Denies headache(s) Cardiovascular: Cardiovascular: Denies chest pain, Denies palpitations and Denies dyspnea Respiratory: Respiratory: Denies cough and Denies dyspnea Gastrointestinal: Gastrointestinal: Denies nausea and Denies vomiting Neurologic: Denies dizziness and Denies headache(s) Endocrine: Endocrine: Denies palpitations Exam Const: General: cooperative, comfortable and no acute distress Orientation/consciousness: patient oriented x3 Resp: Effort & Inspection: normal respiratory effort Auscultation: clear to auscultation bilaterally Cardio: Rate: regular rate GI: Inspection: non-distended GI Palp: No abdominal tenderness and Yes Soft to palpation Auscultation: normal bowel sounds : Other: fundus firm Skin: General skin exam: normal color Neuro: General: patient oriented x3 Extrem: General: normal to inspection Psych: Appearance: grossly normal Affect: normal affect Attitude: cooperative
[2021-11-27 11:19] LABS: Hematocrit 23.8 % (37.0-47.0); Hemoglobin 7.5 g/dL (12.0-15.0); Mean Corpuscular HGB Conc 31.5 g/dl (32-36); Mean Corpuscular Hemoglobin 26.8 pg (26-34); Mean Platelet Volume 9.9 fl (7.4-10.4); Platelet Count Result 214 k/mm3 (150-375); Red Cell Distribution Width 14.5 % (11.5-14.5); White Blood Count 10.4 K/mm3 (4.5-10.0)
[2021-11-27 11:30] LABS: Alanine Aminotransferase 15 U/L (6-35); Albumin Level 2.3 g/dL (3.5-5.1); Alkaline Phosphatase 119 U/L (38-126); Anion Gap 1 mmol/L (8-16); Aspartate Amino Transferase 20 U/L (14-36); Bilirubin,Total < 0.1 mg/dL (0.2-1.3); Blood Urea Nitrogen 5 mg/dL (7-17); Calcium 6.2 mg/dL (8.4-10.2); Carbon Dioxide 22 mmol/L (22-30); Chloride 110 mmol/L (98-107); Estimated CRCL calculation 171 ml/min; Estimated Glomerular Filt Rate > 60; Glucose 97 mg/dL (65-110); Potassium 3.5 mmol/L (3.4-5.0); Sodium 133 mmol/L (137-145)
[2021-11-27 12:25] VITALS: BP 125/85; PULSE 93; RESP 16; TEMP 36.5; O2SAT 97
[2021-11-27] MEDS: POLYSACCHARIDE IRON COMPLEX 150 MG CAPSULE PO (14:03)
[2021-11-27 18:35] VITALS: BP 137/86; PULSE 112; RESP 16; O2SAT 100
[2021-11-28 00:35] VITALS: BP 149/67; PULSE 97; RESP 16; TEMP 37; O2SAT 100
[2021-11-28 04:30] VITALS: BP 131/75; PULSE 91; RESP 16; O2SAT 97
[2021-11-28 08:00] VITALS: BP 125/64; PULSE 72; RESP 18; TEMP 36.7; O2SAT 100
[2021-11-28] MEDS: POLYSACCHARIDE IRON COMPLEX 150 MG CAPSULE PO (08:35)
[2021-11-28] MEDS: IBUPROFEN 600 MG TABLET PO (08:38)
[2021-11-28] MEDS: FAMOTIDINE 10 MG TABLET PO (08:39)
[2021-11-28] MEDS: DOCUSATE SODIUM 100 MG CAPSULE PO (08:40)
--- NOTE | 2021-11-28 10:17 | PM.OBDSVD ---
DS: Admitting Diagnosis Discharge Date 11/28/21 Admitting Diagnosis Elevated blood pressures DS: Discharge Diagnosis Discharge Diagnosis (1) Normal vaginal delivery: Code(s): O80 - Encounter for full-term uncomplicated delivery Status: Acute (2) Pre-eclampsia: Code(s): O14.90 - Unspecified pre-eclampsia, unspecified trimester Status: Acute OB - DS: Summary OB Procedures : NST, PIH Mgmt and Ultrasound OB Procedures Intrapartum: Spontaneous Vag Delivery OB Procedures: : None Peripartum Data Delivery Method: Natural Vaginal Laceration Description: Perineal - 1st Degree 1: Gender: Female Disposition of : home Status at Discharge Functional status at discharge: independent ambulation Overall status at discharge: patient is back to baseline Time Spent with Patient Time attestation: Total time spent providing and/or coordinating discharge services: Time spent: Less than 30 minutes Exam Const: General: cooperative, comfortable and no acute distress Nutritional Appearance: obese Orientation/consciousness: patient oriented x3 Resp: Effort & Inspection: normal respiratory effort Auscultation: clear to auscultation bilaterally Cardio: Rate: regular rate GI: Inspection: non-distended GI Palp: No abdominal tenderness and Yes Soft to palpation Auscultation: normal bowel sounds : Other: fundus firm Skin: General skin exam: normal color Neuro: General: patient oriented x3 Extrem: General: normal to inspection Psych: Appearance: grossly normal Affect: normal affect Attitude: cooperative DS: Data Data Completed and Pending Pending studies at discharge: Pending at discharge 11/26/21 12:32 Surgical [PTH] Routine Labs on day of discharge: Labs from last 24 hours 11/27/21 11/27/21 11:06 11:06 WBC 10.4 H RBC 2.80 L Hgb 7.5 L Hct 23.8 L MCV 85.0 MCH 26.8 MCHC 31.5 L RDW 14.5 Plt Count 214 MPV 9.9 Sodium 133 L Potassium 3.5 Chloride 110 H Carbon Dioxide 22 Anion Gap 1 L BUN 5 L Creatinine 0.50 L Estim Creat Clear Calc 171 Estimated GFR > 60 Glucose 97 Calcium 6.2 L Total Bilirubin < 0.1 L AST 20 ALT 15 Alkaline Phosphatase 119 Total Protein 5.0 L Albumin 2.3 L Discharge Plan Discharge Attending physician on discharge: Padmini Dos Santos Discharging Clinician: Padmini Dos Santos Anticipated Discharge Date/Time: 11/28/21 12:00 Patient Disposition: Home, Self-Care Activity: pelvic rest Diet: regular Patient Instructions: Antibiotic Form Stand Alone Forms: General Discharge Information Follow-up/Referrals: Padmini Dos Santos MD [Physician] - 2 Weeks Discharge Medications: New acetaminophen [Mapap (acetaminophen)] 325 mg Tablet 650 mg PO Q6H PRN (Reason: Mild Pain (1-3) Or Headache) 10 Days Qty: 60 0RF polysaccharide iron complex 150 mg iron Capsule 150 mg PO BIDWM 60 Days Qty: 120 0RF docusate sodium 100 mg Capsule 100 mg PO BID PRN (Reason: Constipation) 20 Days Qty: 40 0RF ibuprofen 600 mg Tablet 600 mg PO Q6H PRN (Reason: Cramping) 10 Days Qty: 40 0RF Discontinued famotidine [Acid Reeler Operator (famotidine)] 10 mg tablet 10 mg PO DAILY Qty: 90 2RF Date of admission: 11/25/21 12:35 Primary Care Provider: Gómez,Lian Nazario Admitting Provider: Padmini Dos Santos Attending physician on admission: Padmini Dos Santos Condition: Stable
--- NOTE | 2021-11-28 12:06 | PC.NURSE ---
Patient viewed the discharge video Mother & Baby Care, The First Two Weeks . Patient was given the opportunity and encouraged to ask questions. Patient verbalized understanding of information shared and has been given the mother/baby guide for home reference.
[2021-11-30 09:01] VITALS: BP 140/80; PULSE 94; RESP 20; TEMP 37.6; O2SAT 100
== END 2021-11-28 14:10 | disposition home or self-care (01) | DRG 560 ==
LOC: ANHLDR 14:56 → ANHOB2 11-26 16:04
PROVIDERS: Admitting Provider Obstetrics & Gynecology; PCP Family Medicine; Visit Provider Obstetrics & Gynecology
DX: O13.4 Gestational [pregnancy-induced] hypertension without significant proteinuria, complicating childbirth (principal); O14.14 Severe pre-eclampsia complicating childbirth; O70.0 First degree perineal laceration during delivery; O76 Abnormality in fetal heart rate and rhythm complicating labor and delivery; O99.214 Obesity complicating childbirth; O69.3XX0 Labor and delivery complicated by short cord, not applicable or unspecified; Z3A.37 37 weeks gestation of pregnancy; Z37.0 Single live birth
CPT/HCPCS: 36415; 80053; 84550; 85014; 85018; 85025; 85027; 86592; 86850; 86900; 86901; 88307; A9270; J2370; J2405; J2590; J2795; J3475; J7120

== ENCOUNTER 2022-06-14 08:46 | Outpatient (CLI) | payer OTHER, SELFPAY ==
--- NOTE | 2022-06-14 11:00 | NEURO_ITS ---
Impression: # Complains of numbness of hands. # Evolving bilateral Carpal Tunnel Syndrome. # No ulnar neuropathy. # Normal needle/EMG exam. # Clinical correlation recommended. Motor Nerve Conduction Upper Extremities Median Nerve Conduction Velocity (m/sec) Terminal Latency (msec) Response Voltage(mV) Elbow-Wrist Wrist Elbow Wrist Right 61 3.9 4 4 Left 65 3.8 5 4 Ulnar Nerve Conduction Velocity (m/sec) Terminal Latency (msec) Response Voltage(mV) Above Elbow Below Elbow Wrist Above Elbow Below Elbow Wrist Right 64 2.0 6 7 Left 61 2.3 6 6 F-Wave Latency Median (ms) Ulnar (ms) Right 25.9 24.0 Left 25.9 24.0 Sensory Nerve Conduction Upper Extremities Median Nerve Stimulation Terminal Latency (msec) Wrist/Digit Response Voltage (uV) Wrist Right 3.2/3.2 49/61 Left 3.2/3.2 38/33 Ulnar Nerve Stimulation Terminal Latency (msec) Wrist/Digit Response Voltage (uV) Wrist Right 1.9 82 Left 1.8 56 Radial Nerve Terminal Latency (msec) Response Voltage(mV) Right 1.8 35 Left 1.4 28 Left Right Muscles Examined Fibrillation Fasciculation Scarcity Voltage Duration Left Right Left Right Left Right Left Right Left Right Deltoid Biceps x X Brachioradialis Triceps X X Pronator Teres X X Ext Indicis X X Ext Digitorum X X Abd Poll Brev X X 1st Dorsal Interosseus Paraspinals MTDD
== END 2022-06-14 08:47 | disposition home or self-care (01) ==
LOC: ANHNEURO 08:47
PROVIDERS: PCP Family Medicine; Visit Provider Family Medicine
DX: G56.03 Carpal tunnel syndrome, bilateral upper limbs (principal)
CPT/HCPCS: 95886; 95911

== ENCOUNTER 2022-12-08 10:43 | Outpatient (CLI) | payer MEDICAID, SELFPAY ==
[2022-12-08 12:44] LABS: Basophils Absolute Auto 0.1 K/mm3 (0.0-0.1); Eosinophils Absolute Auto 0.2 K/mm3 (0-0.3); Eosinophils Percent Auto 3.1 % (0-4.4); Hematocrit 39.3 % (37.0-47.0); Hemoglobin 12.2 g/dL (12.0-15.0); Immature Granulocyte Absolute 0.01 K/mm3 (0.00-0.031); Immature Granulocyte Percent A 0.2 % (0-0.5); Lymphocytes Absolute Auto 1.37 K/mm3 (0.9-3.2); Lymphocytes Percent Auto 26.6 % (18.3-44.2); Mean Corpuscular Hemoglobin 25.7 pg (26-34); Mean Corpuscular Volume 82.7 fl (80-100); Mean Platelet Volume 9.5 fl (7.4-10.4); Monocytes Absolute Auto 0.4 K/mm3 (0.1-0.6); Monocytes Percent Auto 8.1 % (2.6-8.5); Neutrophils Absolute Auto 3.2 K/mm3 (1.3-6.7); Platelet Count Result 303 k/mm3 (150-375); Red Blood Count 4.75 M/mm3 (4.2-5.4); Red Cell Distribution Width 15.9 % (11.5-14.5); White Blood Count 5.2 K/mm3 (4.5-10.0)
[2022-12-08 12:54] LABS: Alanine Aminotransferase 20 U/L (6-35); Albumin Level 4.2 g/dL (3.5-5.1); Alkaline Phosphatase 76 U/L (38-126); Anion Gap 6 mmol/L (8-16); Aspartate Amino Transferase 26 U/L (14-36); Bilirubin,Total 0.5 mg/dL (0.2-1.3); Blood Urea Nitrogen 10 mg/dL (7-17); Calcium 8.8 mg/dL (8.4-10.2); Carbon Dioxide 26 mmol/L (22-30); Chloride 107 mmol/L (98-107); Estimated Glomerular Filt Rate > 60; Glucose 88 mg/dL (65-110); Magnesium 1.9 mg/dL (1.6-2.3); Potassium 3.8 mmol/L (3.4-5.0); Sodium 139 mmol/L (137-145)
[2022-12-08 13:02] LABS: Iron 56 ug/dL (37-170)
[2022-12-08 13:11] LABS: Percent Iron Saturation 15 % (20-50)
[2022-12-08 13:20] LABS: Free T4 Free Thyroxine 1.16 ng/mL (0.78-2.19)
[2022-12-08 14:05] LABS: Folic Acid > 20.0 ng/mL (2.76->20)
[2022-12-11 03:53] LABS: Thyroid Peroxidase Antibodies 64 IU/mL (<9)
[2022-12-11 04:54] LABS: Progesterone 0.3 ng/mL (***); Triiodothyronine T3 Free 3.6 pg/mL (2.3-4.2)
[2022-12-11 10:50] LABS: DHEA-Sulfate 110 mcg/dL (51-321)
[2022-12-14 10:37] LABS: Testosterone Free 2.7 pg/mL (0.1-6.4); Testosterone Total 19 ng/dL (2-45)
[2022-12-14 19:12] LABS: Estradiol, Ultrasensitive 19 pg/mL
== END 2022-12-08 10:44 | disposition home or self-care (01) ==
LOC: ANHLAB 11:58
PROVIDERS: PCP Family Medicine; Visit Provider Internal Medicine Endocrinology, Diabetes & Metabolism
DX: E06.3 Autoimmune thyroiditis (principal); R53.83 Other fatigue; L65.9 Nonscarring hair loss, unspecified
CPT/HCPCS: 36415; 80053; 82607; 82627; 82670; 82746; 83540; 83550; 83735; 84144; 84402; 84403; 84439; 84443; 84481; 85025; 86376